=== PATIENT | male | born 1945 | race Caucasian/White ===

== ENCOUNTER 2018-07-23 13:21 | Inpatient (IN) ==
[~2018-07-23 13:21] MED LIST: ACETAMINOPHEN 500 MG TABLET PO ONE; BACITRACIN 50,000 UNIT VIAL IRRIG ONE; CELECOXIB 200 MG CAPSULE PO ONE; Clindamycin 900mg (Premix) 900 MG/50 ML BAG IV ONE; GABAPENTIN 300 MG CAPSULE PO ONE; LIDOCAINE W/ SODIUM BICARB 0.5 ML SYR ONE; LIDOCAINE W/ SODIUM BICARB 0.5 ML SYR SUBD ONE; Lactated Ringers 1,000 ML PRIMARY IV ONE; Nasal Sanitizer POPSWAB ampule 3 AMP (Nozin) PREOP DOSE ENOS SCH; PANTOPRAZOLE 20 MG TABLET.DR PO ONE; Sodium Chloride 0.9% vial 20 ML ONE; ceFAZolin Inj 2gm (Premix) 2 GM/50 ML BAG IV ONE
[2018-07-23] MEDS ORDERED: Sodium Chloride 0.9% vial 40 ML ONE (13:37)
[2018-07-23] MEDS ORDERED: BACITRACIN 50,000 UNIT VIAL IRRIG ONE (13:38)
[2018-07-23] MEDS ORDERED: BUPivacaine Liposome/PF (Exparel) Inj 20ml vial INFIL ONE (13:38)
[2018-07-23] MEDS: Lactated Ringers 1,000 ML PRIMARY IV SCH ×3 (13:57→20:46)
[2018-07-23] MEDS ORDERED: Ketorolac Inj 30 MG, Morphine Inj (Ortho Cocktail) 4 MG, BUPivacaine Inj 0.25% PF 150 MG SPLASH ONE ×6 (15:00)
[2018-07-23] MEDS ORDERED: fentaNYL Inj 100 MCG/2 ML VIAL ONE (15:15)
[2018-07-23] MEDS ORDERED: MORPHINE SULFATE/PF 10 MG/10 ML AMPULE ONE (15:15)
[2018-07-23] MEDS ORDERED: EPINEPHrine Inj (1:1,000) 1 mg/ml amp ONE (15:15)
[2018-07-23] MEDS ORDERED: MIDAZOLAM HCL 2 MG/2 ML VIAL ONE (15:16)
[2018-07-23] MEDS ORDERED: Propofol 1,000 MG/100 ML VIAL IV ONE (15:50)
[2018-07-23] MEDS ORDERED: TRANEXAMIC ACID 1,000 MG / 10 ML VIAL ONE (16:12)
[2018-07-23] MEDS ORDERED: ePHEDrine Inj 50 MG/ML AMP ONE (16:20)
[2018-07-23] MEDS ORDERED: Lactated Ringers 1,000 ML PRIMARY IV ONE (16:54)
[2018-07-23] MEDS ORDERED: PROPOFOL 10 MG/1 ML (200 MG/20 ML) VIAL IV ONE (17:57)
[2018-07-23] MEDS ORDERED: BACITRACIN 0.9 GM PACKET OINT TOPICAL ONE (18:11)
--- NOTE | 2018-07-23 18:35 | ORTHO.OP ---
Surgery Date: 07/23/18 Preoperative Diagnosis: right hip OA Postoperative Diagnosis: same Procedure: right ALEXIS Surgeon: Ovidio Moore MD [employer] Engine [employer] Specialist: Radha Vega PA-C Anesthesia Provider: Preston Pappas CRNA Anesthesia Type: Regional (spinal) Estimated Blood Loss (mL): 300 Fluids: 1500 mL LR Pathology: none Findings: See Operative Note Indications: See Operative Note Complications: None
--- NOTE | 2018-07-23 18:49 | CRNA.PROCE ---
Central Neuraxis Block Placemt - - Safety Measures: Time Out Taken, Site Verified - - Type of Block: Subarachnoid Reason for Block: Surgical Moniters Used During Block: EKG, SPO2, NIBP Sedation Used - Enter Amount Used in Comment Field: Midazolam (mg): Yes (2), Fentanyl (mcg): Yes (50) Positioning: Sitting Skin Prep Used: ChloroPrep Draped: Yes Skin Infiltration - Enter Amount Used in Comment Field: 1% Xylocaine (mL): Yes Introducer User: [id number] Gauge Spinal Needle Used: 25 Walt 80 mm Local Anesthetic - Enter Amount Used in Comment Field: 0.75 % Bupivacaine with Dextrose (ml): Yes (2) Additive Used - Enter Amount Used in Comment Field: Preservative Free Morphine (mg): Yes (.15), Epinephrine 1:1000 Needle Rinse (mL): Yes Anesthesia Time - Other Weight: 95.708 kg Height: 5 ft 5 in Body Mass Index (BMI): 35.1
--- NOTE | 2018-07-23 18:50 | CRNA.PROGR ---
Anesthesia Time - Procedure/Recovery Time Start Date: 07/23/18 End Date: 07/23/18 Anesthesia : Time In: 15:38 Anesthesia : Time Out: 18:32 Anesthesia : Total Time: 174 - Total Anesthesia Time Total Anesthesia Time (minutes): 174 - Other Weight: 95.708 kg Height: 5 ft 5 in Body Mass Index (BMI): 35.1 Physical Status: P3 Anesthesia Type: Spinal Block
--- NOTE | 2018-07-23 18:50 | CRNA.PROGR ---
Anesthesia Recovery Phase I - Post Anesthesia Evaluation Patient's Condition on Arrival in Phase I: Stable Pain Level: 0
[2018-07-23 19:03] LABS: Hematocrit [HCT] 42.4 % (42.0-52.0); Hemoglobin [HGB] 13.8 g/dL (14.0-18.0)
[2018-07-23] MEDS ORDERED: HYDROcodone-APAP 7.5 MG-325 MG TABLET PO PRN (19:43)
[2018-07-23] MEDS ORDERED: ONDANSETRON 4 MG/2 ML VIAL IVP PRN (19:43)
[2018-07-23] MEDS ORDERED: LIDOCAINE HCL 2 % 10 ML JELLY URO-JECT TOPICAL PRN (19:43)
[2018-07-23] MEDS: DOCUSATE 100 MG CAPSULE PO SCH (20:31)
[2018-07-23] MEDS ORDERED: DORZOLAMIDE EACH EYE SCH (20:45)
[2018-07-23] MEDS: Clindamycin 900mg (Premix) 900 MG/50 ML BAG IV SCH (21:34)
--- NOTE | 2018-07-23 21:47 | PDOC ---
HPI - History of Present Illness Date of Service: 07/23/18 Time of Service: 20:30 Chief Complaint: Right hip pain History of Present Illness: This very pleasant 72-year-old male with hypertension, osteoarthritis, and some eye issues who came in for right hip replacement done by Dr. Moore today. The patient states that he's had right hip pain for 6 months. He tried hip injections and has been on indomethacin but the pain persisted. It was limiting his activities. He opted for right hip replacement done today and again, see Dr. Moore's notes for details of that procedure. Postoperatively, the patient had some nausea which is now resolved. No chest pain and no shortness of breath. His systolic blood pressures have been in the 90s to 130s range on his bedside monitoring. The hospital service was asked to help advise and address and manage issues related to hypertension. Past Medical History Medical History: 1. Hypertension. 2. Osteoarthritis. Surgical History: 1. Remote appendectomy Pertinent Family History: History of prostate cancer for his father. Past Social History: for 44 years. Has healthy children. Does not smoke. Occasional alcohol. Lives in [place], [place]. 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 Tobacco Use: Former Smoker In the Past 12 Months, Have Used or Abuse Any of the Following Substance: None Alcohol Use: Occasionally Medication / Allergies Home Medications: Home Medications Medication Instructions Recorded Confirmed Bimatoprost [Lumigan] 1 drp EACH EYE PRN 07/15/18 07/22/18 Dorzolamide HCl/Pf [Dorzolamide 2% 1 drp EACH EYE PRN 07/15/18 07/23/18 Eye Drop] Indomethacin [Indomethacin ER] 75 mg PO DAILY 07/15/18 07/22/18 Losartan Potassium 50 mg PO DAILY 07/15/18 07/23/18 Hydrocodone/Acetaminophen 1 - 2 ea PO Q4-6H PRN #70 tab 07/23/18 [Hydrocodon-Acetaminoph 7.5-325] Allergies/Adverse Reactions: Allergies Allergy/AdvReac Type Severity Reaction Status Date / Time amlodipine Allergy Swelling Verified 07/23/18 13:53 cephalexin [From Keflex] Allergy Rash Verified 07/23/18 13:53 timolol [From Timoptic] Allergy Other : Verified 07/23/18 13:53 See Comment Review of Systems - Respiratory Respiratory: REPORTS: Negative System Review - Cardiovascular Cardiovascular: REPORTS: Negative System Review - Gastrointestinal Gastrointestinal / Abdominal: REPORTS: Negative System Review, Nausea (Resolved postoperatively.) Exam - Vitals Vital Signs: Vital Signs Temperature 97.6 F Temperature Source Oral Pulse Rate [Pulse Oximeter] 65 Pulse Rate 72 Respiratory Rate 20 Blood Pressure [Left Arm] 108/74 Blood Pressure 134/93 Pulse Ox 98 Oxygen Flow Rate 3 Oxygen Delivery Method Nasal Cannula Height 5 ft 5 in Weight 211 lb - General General Appearance: No Acute Distress, Cooperative - Head Head Exam: Normal Inspection, Normocephalic, Atraumatic - Eye Eye Exam: POSITIVE: No Scleral Icterus - ENT ENT Exam: POSITIVE: Mucous Membranes Moist - Neck Neck Exam: JVP is not Raised - Respiratory Respiratory Exam: POSITIVE: Clear to Auscultation - Bilaterally, Breathing Non Labored - Cardiovascular Cardiovascular Exam: POSITIVE: RRR, No Murmur, No Clicks, No Gallops, No Rubs, No JVD - GI/Abdominal GI/Abdominal Exam: POSITIVE: Normal Bowel Sounds, Non Tender, Non Distended, Soft - Rectal Rectal Exam: POSITIVE: Deferred - External Exam: POSITIVE: Deferred Exam: POSITIVE: Deferred - Extremities Extremities Exam: POSITIVE: No Clubbing Present, No Edema Present, No Cyanosis Present Additional Extremities Exam Details: Right hip has ice applied to the dressing on the right hip - Neurological Neurological Exam: POSITIVE: Alert, Oriented x 3, No Facial Droop, Speech Intact / Clear Results - Labs CBC and BMP: 07/23/18 18:55 Assessment and Plan - Patient Problems (1) Hypertension Current Visit: Yes Status: Acute Code(s): I10 - Essential (primary) hypertension Qualifiers: Hypertension type: essential hypertension Qualified Code(s): I10 - Essential (primary) hypertension (2) Status post right hip replacement Current Visit: Yes Status: Acute Code(s): Z96.641 - Presence of right artificial hip joint (3) Osteoarthritis Current Visit: Yes Status: Acute Code(s): M19.90 - Unspecified osteoarthritis, unspecified site Qualifiers: Osteoarthritis location: hip Osteoarthritis type: primary Laterality: bilateral Qualified Code(s): M16.0 - Bilateral primary osteoarthritis of hip - Assessment / Plan Additional Assessment/Plan Details: Postoperative DVT prophylaxis, PT and OT, and pain control at the direction of orthopedics. In terms of hypotension, I'm going to hold losartan for a few days. He is already on the borderline systolic blood pressure with 97 and his lowest reading here tonight and I suspect that if we continue losartan we could run risk of postoperative hypotension persisting and/or kidney injury and I would prefer that the patient is euvolemic postoperatively prior to resuming this medication. He should be safe to resume it sometime around Sunday or Sunday. In terms of indomethacin I will go ahead and write for that as he is using that for left hip pain. He was written for [employer] earlier. Thank you for this consult. It will be the hospitalist service's pleasure to continue to assist in this patient's management and advise on medical problems during the hospital stay. He can then see his primary physician post discharge.
--- NOTE | 2018-07-23 23:14 | DI ---
XR HIP COMPLETE MIN 2VW U/L,07/23/2018 6:28 PM: Clinical History: Right hip osteoarthritis. Previous Exam: None at this facility. Findings: AP, lateral and cross table lateral views of the right hip are obtained, and demonstrate postsurgical changes consistent with a right total hip arthroplasty. There is no fracture. There is a Everett-Pra tt drain in good position. Impression: Status post right total hip arthroplasty.
[2018-07-24 04:38] LABS: Hemoglobin [HGB] 13.3 g/dL (14.0-18.0); MEAN CORPUSCULAR HEMOGLOBIN 30.4 PG (27-31); MEAN CORPUSCULAR HGB CONC 32.4 g/dL (33-37); MEAN CORPUSCULAR VOLUME 93.6 FL (80-90); MEAN PLATELET VOLUME 10.1 FL (7.4-12.2); RED BLOOD COUNT 4.38 10^6/uL (4.70-6.10)
[2018-07-24 04:56] LABS: BLOOD UREA NITROGEN 32 mg/dL (7-22)
[2018-07-24] MEDS: Clindamycin 900mg (Premix) 900 MG/50 ML BAG IV SCH (05:00)
[2018-07-24 07:18] VITALS: RESP 20
[2018-07-24] MEDS: Lactated Ringers 1,000 ML PRIMARY IV SCH ×2 (08:11→16:47)
[2018-07-24] MEDS ORDERED: Sodium Chloride 0.9% 1,000 ML PRIMARY IV ONE (08:55)
[2018-07-24] MEDS ORDERED: INDOMETHACIN 75 MG PO SCH (09:00)
[2018-07-24] MEDS ORDERED: ENOXAPARIN SODIUM 30 MG/0.3 ML SYRINGE SUBCUT SCH (09:00)
[2018-07-24] MEDS: DOCUSATE 100 MG CAPSULE PO SCH (09:09)
--- NOTE | 2018-07-24 10:23 | ORTHO.PROG ---
Last Taken Vital Signs: Vital Signs - Last Taken Temperature 98.9 F 07/24/18 07:12 Pulse Rate 77 07/24/18 07:12 Respiratory Rate 20 07/24/18 07:12 Blood Pressure 109/65 07/24/18 07:12 Pulse Ox 99 07/24/18 07:12 Subjective: Patient reports he is feeling well today and currently denies any pain. He has not had to take any pain medications thus far. He had an episode of nausea last night, but states this resolved. Denies any current paresthesias, calf pain, CP, SOB, F/C, N/V. He has not urinated since prior to surgery yesterday. Denies having an suprapubic discomfort. Objective: Laboratory Results 07/23/18 07/23/18 07/24/18 14:06 18:55 04:00 WBC 12.76 H RBC 4.38 L Hgb 13.8 L 13.3 L Hct 42.4 41.0 L MCV 93.6 H MCH 30.4 MCHC 32.4 L RDW Std Deviation 43.4 RDW Coeff of Caroline 13.1 Plt Count 256 MPV 10.1 Sodium Potassium Chloride Carbon Dioxide Anion Gap BUN Creatinine Estimated GFR BUN/Creatinine Ratio Glucose Calculated Osmolality Calcium Blood Type O NEGATIVE Antibody Screen Negative Crossmatch See Detail 07/24/18 04:00 WBC RBC Hgb Hct MCV MCH MCHC RDW Std Deviation RDW Coeff of Caroline Plt Count MPV Sodium 137 Potassium 5.2 Chloride 100 Carbon Dioxide 26 Anion Gap 11 BUN 32 H Creatinine 1.6 H Estimated GFR Malt Specifications Control Assistant BUN/Creatinine Ratio 20.00 Glucose 120 H Calculated Osmolality 291.0 Calcium 8.5 L Blood Type Antibody Screen Crossmatch Radiographs of the right hip show s/p right ALEXIS with well fixed and positioned components. Bladder scan performed early AM reported by nurse was about 250 mLs. On exam, the patient is comfortably laying in the hospital bed, A&O x 3, not in any acute distress. The Prevena dressing is intact holding suction. Negative calf tenderness. NV intact. Assessment: POD 1 s/p Right ALEXIS overall doing well in regards to the right hip. Patient is still on O2 via nasal canula and has urinary retention likely from the duramorph spinal block. Plan: * insert straight catheter if unable to void this morning * Pain meds: continue hydrocodone 7.5/325 mg upon discharge * DVT ppx: lovenox in hospital; discharge home on ASA 81mg 1 tablet daily and portable SCDs * Abd pillow: continue when sleeping at night * Wound care: leave Prevena dressing on until first PO visit * WBAT with walker * Start outpatient PT by Sunday * Discharge home once cleared by hospitalist; ok with ortho to be discharged home today * follow-up as scheduled with ortho in 1 week
--- NOTE | 2018-07-24 12:00 | PTI REPORT ---
Thank you for the referral of Blair Borja. He was seen on 07/24/18 for an inpatient evaluation status post posterior total hip arthroplasty. SUBJECTIVE: The patient is a 72-year-old male. The patient reports that he lives in [place] with his . He has five stairs to get into the house but they are wide stairs and they have handrails. The patient was previously independent. The patient rates his pain as a 0/10 on the verbal analog scale (0=no pain, 10=worst pain). PAST MEDICAL HISTORY: Past medical history can be found in the patient's medical record. OBJECTIVE FINDINGS: General observations: Nursing okayed treatment prior to PT. The patient was on two liters of oxygen with Prevena dressing. Bed mobility: The patient required stand by assist for supine to sit transfer to edge of bed. The patient's head of bed was elevated approximately 90 degrees. Transfers: The patient required contact guard assist x2 for sit to stand transfer with walker. The patient required contact guard assist x2 for stand to sit transfer to his chair. Ambulation: The patient required contact guard assist x2 for ambulation to chair which was approximately 5 feet with standard walker. ASSESSMENT: The patient is a 72-year-old male who is status post posterior total hip arthroplasty. The patient was educated on posterior hip precautions. The patient would benefit from skilled therapy in order to improve overall functional mobility and to return to prior level of function. The patient's prognosis for therapy is good. Problem List: Decreased strength Decreased functional mobility Short-Term Goals: To be met by discharge from inpatient: Patient will be independent with all transfers with walker. Patient will be able to ambulate 150 feet with walker. Patient will be able to ascend and descend five stairs in order to return home safely with least restrictive assistive device. Long-Term Goals: To be met following discharge from inpatient: Patient will benefit from being seen by outpatient physical therapy. TREATMENT PLAN: Patient will be seen B.I.D during the week and one time per day over the weekend as an inpatient for therapeutic exercise, functional activity, neuromuscular reeducation, gait training, and modalities as needed. INITIAL TREATMENT: Treatment today consisted of the initial evaluation followed by the patient transferring to the chair. Following treatment the patient was left in chair with call light within reach and chair alarm activated. The patient was instructed to pump his ankles while he was in his chair and legs were elevated with pillows under his legs with heels floating. SHAYY
[2018-07-24 14:46] LABS: BLOOD UREA NITROGEN 31 mg/dL (7-22); BUN/CREATININE RATIO 22.14 (6-20)
--- NOTE | 2018-07-24 15:42 | PT.PROG ---
Progress Note Progress Note: S. Patient stated that he is feeling good, he reports he is a little stiff and sore from sitting in the chair. O. Patient ambulated 150 feet around the nurses station and back to his room where he was left in the restroom and nursing was notified. A. Patient tolerated ambulation well, he required contact guard assist. He agreed to perform stair training tomorrow 6/13 AM. P. Continue POC.
--- NOTE | 2018-07-24 17:24 | DCSUMMARY ---
Hospitalization Summary Admit Date: 07/23/2018 Discharge Date: 07/24/18 Primary Diagnosis:: status post right hip replacement Hospital Course: This is a very pleasant 72-year-old male who presented for right hip replacement with Dr. Moore on 07/23/2018. The procedure was performed by Dr. Moore and please see his surgical notes regarding the procedure. Hospital service was consult to help address medical issues while here. The patient's losartan/HCTZ was held as the patient was mildly hypotensive postoperatively, but his hypotension resolved with IV fluids. His creatinine was elevated and next to 1.6 and a think that was a result of dehydration, medications for blood pressure, and use of indomethacin so I gave him some extra fluids and his creatinine came down to 1. 4 in the afternoon. We held off on indomethacin I instructed him not to use it any further. I instructed him not to use any anti-inflammatories. The patient had some urinary retention that resolved prior to discharge. The patient has a urology evaluation for some hematuria issues on 07/29/2018. His normal pattern of urination is every 2 hours. 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 Patient met his physical therapy goals prior to discharge. I've instructed the patient to resume his blood pressure medication on 07/26/2018. The patient denies chest pain, shortness breath, nausea or vomiting. He is anxious to go home. Assessment and Plan: 1. As per discharge assessments noted 2. Disposition: Patient is discharged home. 3. Condition on discharge, stable and improved. 4. Diet: regular diet 5. Activities: Per instructions from Dr. Moore 6. Follow-Up: 1. Primary physician in [place] in one week 2. Orthopedics is scheduled 7. Medications at the Time of Discharge: Home Medications Medication Instructions Recorded Confirmed Bimatoprost [Lumigan] 1 drp RIGHT EYE DAILY 07/15/18 07/24/18 Dorzolamide HCl/Pf [Dorzolamide 2% 1 drp RIGHT EYE DAILY 07/15/18 07/24/18 Eye Drop] Brimonidine Tartrate 1 drp RIGHT EYE BID 07/24/18 07/24/18 HYDROcodone/APAP 7.5/325 Tab 1 - 2 tab PO Q4H PRN #20 tab 07/24/18 [[place] 7.5/325 Tab] Losartan/Hydrochlorothiazide 1 tab PO DAILY 07/24/18 07/24/18 [Losartan-Hctz 100-12.5 mg Tab] 8. Time, care, counseling and coordination of care for this discharge is greater than 30 minutes. Exam - Vitals Vital Signs: Vital Signs Temperature 99.3 F Temperature Source Temporal Artery Scan Pulse Rate [Pulse Oximeter] 103 Pulse Rate 72 Respiratory Rate 20 Blood Pressure [Right Arm] 117/61 Blood Pressure [Left Arm] 122/67 Blood Pressure 134/93 Pulse Ox 90 Oxygen Flow Rate 2 Oxygen Delivery Method Room Air Height 5 ft 5 in Weight 223 lb 9.6 oz - General General Appearance: No Acute Distress, Cooperative - Eye Eye Exam: POSITIVE: No Scleral Icterus - ENT ENT Exam: POSITIVE: Mucous Membranes Moist - Neck Neck Exam: JVP is not Raised - Respiratory Respiratory Exam: POSITIVE: Clear to Auscultation - Bilaterally, Breathing Non Labored - Cardiovascular Cardiovascular Exam: POSITIVE: RRR, No Murmur, No Clicks, No Gallops, No Rubs, No JVD - GI/Abdominal GI/Abdominal Exam: POSITIVE: Normal Bowel Sounds, Non Tender, Non Distended, Soft - Extremities Extremities Exam: POSITIVE: No Clubbing Present, No Edema Present, No Cyanosis Present Additional Extremities Exam Details: Incision is clean, dry, intact, dressed - Neurological Neurological Exam: POSITIVE: Alert, Oriented x 3, No Facial Droop, Speech Intact / Clear Data Peritnent Studies: Laboratory Results 07/23/18 07/24/18 07/24/18 18:55 04:00 04:00 WBC 12.76 H RBC 4.38 L Hgb 13.8 L 13.3 L Hct 42.4 41.0 L MCV 93.6 H MCH 30.4 MCHC 32.4 L RDW Std Deviation 43.4 RDW Coeff of Caroline 13.1 Plt Count 256 MPV 10.1 Sodium 137 Potassium 5.2 Chloride 100 Carbon Dioxide 26 Anion Gap 11 BUN 32 H Creatinine 1.6 H Estimated GFR Chemical Maker BUN/Creatinine Ratio 20.00 Glucose 120 H Calculated Osmolality 291.0 Calcium 8.5 L 07/24/18 14:18 WBC RBC Hgb Hct MCV MCH MCHC RDW Std Deviation RDW Coeff of Caroline Plt Count MPV Sodium 134 L Potassium 4.5 Chloride 101 Carbon Dioxide 24 Anion Gap 9 BUN 31 H Creatinine 1.4 Estimated GFR BUN/Creatinine Ratio 22.14 H Glucose 104 Calculated Osmolality 284.0 Calcium 8.1 L Patient Problems - Patient Problem List (1) Status post right hip replacement Current Visit: Yes Status: Acute Code(s): Z96.641 - Presence of right artificial hip joint Category: Surgical (2) Hypertension Current Visit: Yes Status: Acute Code(s): I10 - Essential (primary) hypertension Qualifiers: Hypertension type: essential hypertension Qualified Code(s): I10 - Essential (primary) hypertension Category: Medical (3) Osteoarthritis Current Visit: Yes Status: Acute Code(s): M19.90 - Unspecified osteoarthritis, unspecified site Qualifiers: Osteoarthritis location: hip Osteoarthritis type: primary Laterality: bilateral Qualified Code(s): M16.0 - Bilateral primary osteoarthritis of hip Category: Medical (4) Urinary retention Current Visit: Yes Status: Resolved Code(s): R33.9 - Retention of urine, unspecified Category: Medical
--- NOTE | 2018-07-24 17:35 | OT.PROG ---
Progress Note Progress Note: S: pt reported that he is hoping to go home tonight. O: pt was seen in his room and completed functional transfer Ind with walker to stairwell. He completed 6 stairs, up and down safely and successfully. A: pt participated well and is prepared for d/c home. P: continue therapy as out-pt.
[2018-07-24 17:42] VITALS: BP 133/80; O2SAT 93
[2018-07-24 17:46] VITALS: TEMP 99.5
[2018-07-24] MEDS ORDERED: BIMATOPROST EYE EACH EYE SCH (21:00)
[2018-07-25] MEDS ORDERED: ENOXAPARIN SODIUM 30 MG/0.3 ML SYRINGE SUBCUT SCH (09:00)
--- NOTE | 2018-07-25 10:56 | OTI REPORT ---
Thank you for the referral of Blair Borja. He was seen on 07/24/18 for an occupational therapy inpatient evaluation status post total hip arthroplasty. SUBJECTIVE: The patient is a 72-year-old male who lives in [place]. The patient's was present during the session today. She presented with oxygen and reports that she will not be able to help a lot at home with the lower extremities. The patient did not know his precautions. The patient reports that prior to admission he was independent with ADLs. He states he did have hip pain for quite some time. PAST MEDICAL HISTORY: Past medical history can be found in the patient's medical record. OBJECTIVE FINDINGS: General observations: The patient was educated in his hip precautions. Demonstration on how to follow them was given. Activities of daily living: The patient was able to sit edge of chair and practice doffing socks with the petroleum products district supervisor and donning pants with the petroleum products district supervisor. The patient was issued a hard sock aide to don socks, which he was able to do with increased time. The patient was also issued a long handled shoe horn and a bath sponge for increased independence with ADLs and dressing and showering tasks. The patient also needs a shower chair as the patient does not have one in his home. He states they do have a higher toilet seat. Transfer: The patient was able to complete a sit to stand transfer with verbal cues for safety. He tends to try to pull up on the walker and received cues to push up off of the chair. After cues and demonstration the patient was able to transfer appropriately and safely. The patient was able to complete a toilet transfer with contact guard assist. The patient then stood at sink to complete hygiene activities. ASSESSMENT: The patient would benefit from at least one more session to address improving his overall independence and safety with ADLs and functional tasks and with use of adaptive devices. The patient was able to use adaptive devices with min assist and verbal cues. Short-Term Goals: To be met by discharge from inpatient: Patient will be able to dress lower extremities with adaptive devices with modified independence. Patient will be able to complete all functional transfers safely and independently while following hip precautions. Patient will follow hip precautions with all functional transfers. Patient will be able to complete a toilet transfer with stand by assist. Long-Term Goals: To be met following discharge from inpatient: Patient will return home, demonstrating safety and independence with all functional activities and ADLs. TREATMENT PLAN: Patient will be seen B.I.D during the week and one time per day over the weekend as an inpatient to address the above goals and objectives. INITIAL TREATMENT: Treatment today consisted of the initial evaluation followed by the patient completing lower extremity dressing and receiving education on adaptive equipment. The patient was educated on hip precautions. The patient practiced doffing socks with petroleum products district supervisor and donning pants and socks with adaptive devices. The patient then ambulated 40 feet and completed a toilet transfer followed by hygiene activities. SHAYY
== END 2018-07-24 18:58 | disposition home or self-care (01) | DRG 470 ==
LOC: EDBD → OPS 13:21 → MED/SURG 19:10
PROVIDERS: ADMIT Orthopaedic Surgery; ATTEND Orthopaedic Surgery